=== PATIENT | male | born 1975 | race Caucasian/White ===

== ENCOUNTER 2020-01-19 09:33 | Emergency (ER) | payer MEDICAID ==
[~2020-01-19] VITALS: Ht 180.3 cm; Wt 99.8 kg
[2020-01-19 09:44] VITALS: BP 134/87
== END 2020-01-19 11:23 | disposition home or self-care (01) ==
LOC: ER 09:33
DX: J40 Bronchitis, not specified as acute or chronic (principal); F41.9 Anxiety disorder, unspecified
CPT/HCPCS: 71045

== ENCOUNTER 2020-08-23 12:10 | Emergency (ER) | payer MEDICAID ==
[~2020-08-23] VITALS: Ht 180.3 cm; Wt 97.5 kg
[2020-08-23] MEDS ORDERED: SODIUM CHLORIDE 0.9% 500 ML IVB ONE (13:00)
[2020-08-23] MEDS ORDERED: ONDANSETRON HCL 4 MG/2 ML VIAL IV ONE (13:00)
[2020-08-23] MEDS ORDERED: MORPHINE SULFATE 4 MG/ML SYR/VIAL IV ONE (13:00)
[2020-08-23 15:03] LABS: Basophils # (auto) 0.1 10 ^3/uL (0-0.2); Basophils % (auto) 0.9 % (0.0-2.0); Eosinophils # (auto) 0 10 ^3/uL (0-0.8); Eosinophils % (auto) 0.7 % (0.0-7.0); Hematocrit 44.4 % (41.0-53.0); Hemoglobin 15.5 g/dL (13.5-17.5); Lymphocytes # (auto) 1.8 10 ^3/uL (0.4-5.4); Lymphocytes % (auto) 29.1 % (10.0-50.0); Mean Corpuscular Hemoglobin 31.9 pg (28.0-32.0); Mean Corpuscular Hgb Conc. 34.9 g/dL (32.0-36.0); Mean Corpuscular Volume 91.4 fL (80.0-100.0); Monocytes # (auto) 0.6 10 ^3/uL (0-1.3); Monocytes % (auto) 10.6 % (0.0-12.0); Neutrophils # (auto) 3.5 10 ^3/uL (1.6-8.6); Neutrophils % (auto) 58.7 % (37.0-80.0); Nucleated Red Blood Cells % 0.1 %; Red Blood Cells 4.86 10^6/uL (4.5-5.90); Red Cell Distribution Width 13.6 % (11.8-14.3)
[2020-08-23 15:23] LABS: Calcium 8.9 mg/dL (8.5-10.1); Potassium 3.5 mmol/L (3.5-5.1)
[2020-08-23 15:26] LABS: Bilirubin, Total 0.4 mg/dL (0.2-1.0)
[2020-08-23 15:48] LABS: INR 0.96 (0.9-1.15); Partial Thromboplastin Time 27.6 sec (23.0-31.2)
[2020-08-23] MEDS ORDERED: KETOROLAC TROMETH 30 MG/ML 1ML VIAL IV ONE (17:00)
[2020-08-23 17:03] VITALS: BP 132/70
== END 2020-08-23 17:21 | disposition home or self-care (01) ==
LOC: ER 12:10
DX: R10.13 Epigastric pain (principal); R11.2 Nausea with vomiting, unspecified; I10 Essential (primary) hypertension; F17.210 Nicotine dependence, cigarettes, uncomplicated; Z98.890 Other specified postprocedural states
CPT/HCPCS: 36415; 74176; 80053; 83690; 85025; 85610; 85730; 96361; 96374; 96375; 99284; J1885; J2405

== ENCOUNTER 2022-03-22 09:58 | Emergency (ER) | payer MEDICAID ==
[~2022-03-22] VITALS: Ht 180.3 cm; Wt 81.8 kg
[2022-03-22] MEDS ORDERED: LIDOCAINE 1% HCL (LOCAL ANESTH.) INJ 20ML MDV IJ ONE (11:30)
[2022-03-22 11:36] VITALS: BP 118/82
[2022-03-22] MEDS ORDERED: CEPH-510 PO (12:05)
[2022-03-22] MEDS ORDERED: IBUP800T27 PO (12:05)
== END 2022-03-22 12:28 | disposition home or self-care (01) ==
LOC: EDBD 09:58 → ER 09:58
DX: S01.511A Laceration without foreign body of lip, initial encounter (principal); S43.402A Unspecified sprain of left shoulder joint, initial encounter; I10 Essential (primary) hypertension; F17.210 Nicotine dependence, cigarettes, uncomplicated; Z79.1 Long term (current) use of non-steroidal anti-inflammatories (NSAID); Z79.899 Other long term (current) drug therapy; Y04.2XXA Assault by strike against or bumped into by another person, initial encounter; Y93.89 Activity, other specified; Y92.89 Other specified places as the place of occurrence of the external cause; Y99.8 Other external cause status
CPT/HCPCS: 12013; 73030; 99283; J2001

== ENCOUNTER 2022-03-22 20:14 | Emergency (ER) | payer MEDICAID ==
[~2022-03-22] VITALS: Ht 172.7 cm; Wt 84.0 kg
[~2022-03-22 20:14] MED LIST: CEPH-510 PO; IBUP800T27 PO
[2022-03-22 20:43] VITALS: BP 102/68
== END 2022-03-22 23:59 | disposition left against medical advice (07) ==
LOC: EDBD 20:14 → ER 20:14
DX: M25.512 Pain in left shoulder (principal); G43.909 Migraine, unspecified, not intractable, without status migrainosus; Z53.21 Procedure and treatment not carried out due to patient leaving prior to being seen by health care provider